=== PATIENT | male | born 1975 | race Caucasian/White ===

== ENCOUNTER 2019-11-26 13:39 | Inpatient (IN) | payer MEDICAID, OTHER ==
[~2019-11-26] VITALS: Ht 167.6 cm; Wt 98.4 kg
[~2019-11-26 13:39] MED LIST: BACL10TA PO; HYDR-3971 PO; OXYC-158 PO
[2019-11-26 16:03] LABS: BASOPHILS % (AUTO) 1.4 % (0.0-2.0); EOSINOPHILS % (AUTO) 0.3 % (1.0-6.0); HEMATOCRIT 49.4 % (41-53); HEMOGLOBIN 16.3 g/dL (13.5-17.5); LYMPHOCYTES # (AUTO) 1.1 K/uL (1.0-4.8); LYMPHOCYTES % (AUTO) 21.5 % (22.0-44.0); MEAN CORPUSCULAR HEMOGLOBIN 29.3 pg (26.0-34.0); MEAN CORPUSCULAR VOLUME 89 fL (80-100); MONOCYTES # (AUTO) 0.5 K/uL (0.1-1.0); MONOCYTES % (AUTO) 9.2 % (2.0-9.0); NEUTROPHILS # (AUTO) 3.3 K/uL (1.8-7.7); NEUTROPHILS % (AUTO) 67.6 % (40.0-70.0); PLATELET COUNT (AUTO) 261 K/uL (150-450); RED BLOOD CELL COUNT(AUTO) 5.57 MIL/uL (4.50-5.90); RED CELL DISTRIBUTION WIDTH 14.5 % (11.5-14.5)
[2019-11-26 16:15] LABS: ANION GAP 13 mmol/L (8-16); CALCIUM, TOTAL 8.1 mg/dL (8.8-10.5); CARBON DIOXIDE 24 mmol/L (22-29); CHLORIDE 106 mmol/L (98-107); GLOMERULAR FILTR. RATE CALC > 60 mL/min (>60); GLUCOSE,RANDOM 113 mg/dL (70-110); POTASSIUM 3.3 mmol/L (3.5-5.1); SODIUM SERUM 143 mmol/L (136-145); UREA NITROGEN, BLOOD 14 mg/dL (7-18)
[2019-11-26 16:19] LABS: ALANINE AMINOTRANSFERASE 78 U/L (12-78); ALBUMIN 4.1 g/dL (3.4-5.0); ALKALINE PHOSPHATASE 130 U/L (46-116); ASPARTATE AMINOTRANSFERASE 76 U/L (15-37); BILIRUBIN,TOTAL 0.6 mg/dL (0.1-1.0); TOTAL PROTEIN, SERUM 7.3 g/dL (6.4-8.2)
[2019-11-26] MEDS ORDERED: ONDANSETRON HCL 4 MG TABLET PO ONE (18:30)
[2019-11-26] MEDS ORDERED: LORazepam 2 MG TABLET PO ONE (18:45)
[2019-11-26] MEDS ORDERED: IBUPROFEN 600 MG TABLET PO ONE (19:15)
[2019-11-26 20:00] LABS: AMPHET/METH SCREEN,URINE NEGATIVE (NEGATIVE); BARBITURATE SCREEN, URINE NEGATIVE (NEGATIVE); BENZODIAZEPINES SCREEN,URINE POSITIVE (NEGATIVE); CANNABINOID SCREEN,URINE POSITIVE (NEGATIVE); COCAINE SCREEN,URINE NEGATIVE (NEGATIVE); METHADONE SCREEN, URINE NEGATIVE (NEGATIVE); OPIATE SCREEN,URINE NEGATIVE (NEGATIVE)
[2019-11-26 20:03] LABS: PHENCYCLIDINE SCREEN,URINE NEGATIVE (NEGATIVE)
[2019-11-26] MEDS ORDERED: GABA-1201 PO (20:09)
[2019-11-26] MEDS ORDERED: [UNRECOGNIZED DRUG - CODE] PO (20:09)
[2019-11-26] MEDS ORDERED: PRAZ2 PO (20:09)
[2019-11-26] MEDS ORDERED: LISI-660 PO (20:09)
[2019-11-26] MEDS ORDERED: SERT100T12 PO (20:09)
[2019-11-26] MEDS ORDERED: BUSP5TAB20 PO (20:09)
[2019-11-26] MEDS ORDERED: AMLO2.5T4 PO (20:09)
[2019-11-26] MEDS ORDERED: DICL2.5D8 OU (20:10)
[2019-11-26 21:30] VITALS: BP 138/102
[2019-11-26] MEDS: LORazepam 2 MG TABLET PO PRN (22:18)
[2019-11-26 22:30] VITALS: BP_SYST 159; BP_DIAS 106; BP_DIAS 109
[2019-11-26] MEDS ORDERED: IBUPROFEN 400 MG TABLET PO PRN (23:15)
[2019-11-26] MEDS ORDERED: ACETAMINOPHEN 325 MG TABLET PO PRN (23:15)
[2019-11-26] MEDS ORDERED: DOCUSATE SODIUM 100 MG CAPSULE PO PRN (23:15)
[2019-11-26] MEDS ORDERED: PETROLATUM,WHITE 28 GM JELLY TP PRN (23:15)
[2019-11-26] MEDS ORDERED: ALBUTEROL SULFATE HFA 90 MCG/PUFF 8 GM INHALER IH PRN (23:15)
[2019-11-26] MEDS ORDERED: NICOTINE 14 MG/24 HOUR PATCH TD PRN (23:15)
[2019-11-26] MEDS ORDERED: GuaiFENesin/D-METHORPHAN [SUGAR-FREE] 200-20MG/10 ML SYRUP UDCUP PO PRN (23:15)
[2019-11-26] MEDS ORDERED: LOPERAMIDE HCL 2 MG CAPSULE PO PRN (23:15)
[2019-11-26] MEDS ORDERED: CloNIDine HCL 0.1 MG TABLET PO PRN (23:15)
[2019-11-26] MEDS ORDERED: ONDANSETRON HCL 4 MG TABLET PO PRN (23:15)
[2019-11-26] MEDS ORDERED: MAG HYDROX/AL HYDROX/SIMETH ES 30 ML SUSPENSION UDCUP PO PRN (23:15)
[2019-11-26] MEDS ORDERED: MAGNESIUM HYDROXIDE SUSPENSION 30 ML UDCUP PO PRN (23:15)
[2019-11-26 23:30] VITALS: BP 158/88
[2019-11-27] VITALS (10 sets, daily range): BP systolic 126–156; BP diastolic 73–99
[2019-11-27] MEDS: ZOLPIDEM TARTRATE 10 MG TABLET PO PRN (01:58)
[2019-11-27] MEDS: LORazepam 2 MG TABLET PO PRN (01:58)
[2019-11-27] MEDS ORDERED: LORazepam 2 MG TABLET PO PRN (07:00)
[2019-11-27] MEDS ORDERED: ALBUTEROL SULFATE HFA 90 MCG/PUFF 8 GM INHALER IH PRN (09:30)
[2019-11-27] MEDS ORDERED: MAG HYDROX/AL HYDROX/SIMETH ES 30 ML SUSPENSION UDCUP PO PRN (09:30)
[2019-11-27] MEDS ORDERED: ONDANSETRON HCL 4 MG TABLET PO PRN (09:30)
[2019-11-27] MEDS ORDERED: CloNIDine HCL 0.1 MG TABLET PO PRN (09:30)
[2019-11-27] MEDS ORDERED: LOPERAMIDE HCL 2 MG CAPSULE PO PRN (09:30)
[2019-11-27] MEDS ORDERED: GuaiFENesin/D-METHORPHAN [SUGAR-FREE] 200-20MG/10 ML SYRUP UDCUP PO PRN (09:30)
[2019-11-27] MEDS ORDERED: NICOTINE 14 MG/24 HOUR PATCH TD PRN (09:30)
[2019-11-27] MEDS ORDERED: PETROLATUM,WHITE 28 GM JELLY TP PRN (09:30)
[2019-11-27] MEDS ORDERED: MAGNESIUM HYDROXIDE SUSPENSION 30 ML UDCUP PO PRN (09:30)
[2019-11-27] MEDS ORDERED: DOCUSATE SODIUM 100 MG CAPSULE PO PRN (09:30)
[2019-11-27] MEDS: NICOTINE 21 MG/24 HOUR PATCH TD SCH (09:47)
[2019-11-27] MEDS: LORazepam 2 MG TABLET PO SCH ×4 (09:47→20:30)
[2019-11-27 11:18] LABS: BASOPHILS % (AUTO) 0.2 % (0.0-2.0); EOSINOPHILS % (AUTO) 0.4 % (1.0-6.0); HEMATOCRIT 45.7 % (41-53); HEMOGLOBIN 15.7 g/dL (13.5-17.5); LYMPHOCYTES % (AUTO) 10.1 % (22.0-44.0); MEAN CORPUSCULAR HEMOGLOBIN 29.9 pg (26.0-34.0); MEAN CORPUSCULAR HGB CONC 34.4 G/dL (31.0-37.0); MEAN CORPUSCULAR VOLUME 87 fL (80-100); MONOCYTES % (AUTO) 10.6 % (2.0-9.0); NEUTROPHILS # (AUTO) 7.5 K/uL (1.8-7.7); NEUTROPHILS % (AUTO) 78.7 % (40.0-70.0); PLATELET COUNT (AUTO) 230 K/uL (150-450); RED BLOOD CELL COUNT(AUTO) 5.25 MIL/uL (4.50-5.90); RED CELL DISTRIBUTION WIDTH 14.5 % (11.5-14.5)
[2019-11-27 11:42] LABS: ALANINE AMINOTRANSFERASE 89 U/L (12-78); ALBUMIN 3.8 g/dL (3.4-5.0); ALKALINE PHOSPHATASE 129 U/L (46-116); ANION GAP 11 mmol/L (8-16); ASPARTATE AMINOTRANSFERASE 67 U/L (15-37); CALCIUM, TOTAL 8.9 mg/dL (8.8-10.5); CARBON DIOXIDE 29 mmol/L (22-29); CHLORIDE 103 mmol/L (98-107); CHOL/HDL RATIO 4.8 (4.2-7.3); CHOLESTEROL 172 mg/dL (131-200); CREATININE 1.01 mg/dL (0.60-1.30); GLOMERULAR FILTR. RATE CALC > 60 mL/min (>60); GLUCOSE,RANDOM 110 mg/dL (70-110); HDL CHOLESTEROL 36 mg/dL (40-60); POTASSIUM 3.5 mmol/L (3.5-5.1); SODIUM SERUM 143 mmol/L (136-145); THYROID STIMULATING HORMONE 1.94 uIU/mL (0.36-3.74); TOTAL PROTEIN, SERUM 6.7 g/dL (6.4-8.2); TRIGLYCERIDES 403 mg/dL (15-150); UREA NITROGEN, BLOOD 19 mg/dL (7-18)
[2019-11-27] MEDS: IBUPROFEN 400 MG TABLET PO PRN (12:56)
[2019-11-27] MEDS: QUEtiapine FUMARATE 100 MG TABLET PO SCH (20:30)
[2019-11-28 01:30] VITALS: BP 138/86
[2019-11-28 05:53] VITALS: BP 142/84
[2019-11-28] MEDS: NICOTINE 21 MG/24 HOUR PATCH TD SCH (09:13)
[2019-11-28] MEDS: LORazepam 2 MG TABLET PO SCH ×4 (09:13→21:10)
[2019-11-28] MEDS: AmLODIPine BESYLATE 2.5 MG TABLET PO SCH (09:14)
[2019-11-28] MEDS: LISINOPRIL 5 MG TABLET PO SCH (09:14)
[2019-11-28] MEDS: QUEtiapine FUMARATE 25 MG TABLET PO SCH (09:14)
[2019-11-28 09:15] VITALS: BP 144/109
[2019-11-28] MEDS: IBUPROFEN 400 MG TABLET PO PRN ×2 (09:15→19:05)
[2019-11-28 12:36] VITALS: BP 144/98
[2019-11-28 16:30] VITALS: BP 137/96
[2019-11-28] MEDS: HALOPERIDOL 5 MG TABLET PO PRN (19:00)
[2019-11-28] MEDS: QUEtiapine FUMARATE 100 MG TABLET PO SCH (21:10)
[2019-11-28] MEDS: ACETAMINOPHEN 325 MG TABLET PO PRN (23:56)
[2019-11-29 00:05] VITALS: BP 142/98
[2019-11-29] MEDS ORDERED: LORazepam 1 MG TABLET PO PRN (07:00)
[2019-11-29] MEDS: QUEtiapine FUMARATE 25 MG TABLET PO SCH (08:52)
[2019-11-29] MEDS: LISINOPRIL 5 MG TABLET PO SCH (08:52)
[2019-11-29] MEDS: LORazepam 1 MG TABLET PO SCH ×4 (08:52→20:50)
[2019-11-29] MEDS: AmLODIPine BESYLATE 2.5 MG TABLET PO SCH (08:52)
[2019-11-29] MEDS: NICOTINE 21 MG/24 HOUR PATCH TD SCH (08:53)
[2019-11-29 08:56] VITALS: BP 135/98
[2019-11-29] MEDS: IBUPROFEN 400 MG TABLET PO PRN (08:56)
[2019-11-29 09:54] VITALS: BP 135/98
[2019-11-29] MEDS: ACETAMINOPHEN 325 MG TABLET PO PRN (14:24)
[2019-11-29 19:55] VITALS: BP 109/70
[2019-11-29] MEDS: QUEtiapine FUMARATE 100 MG TABLET PO SCH (20:50)
[2019-11-29] MEDS: HALOPERIDOL 5 MG TABLET PO PRN ×2 (21:27)
[2019-11-30] MEDS: LORazepam 2 MG TABLET PO PRN ×2 (02:11→02:23)
[2019-11-30 02:17] VITALS: BP 134/97
[2019-11-30] MEDS: HALOPERIDOL 5 MG TABLET PO PRN ×2 (02:23→18:00)
[2019-11-30] MEDS: AmLODIPine BESYLATE 2.5 MG TABLET PO SCH (08:59)
[2019-11-30] MEDS: LISINOPRIL 5 MG TABLET PO SCH (08:59)
[2019-11-30] MEDS: QUEtiapine FUMARATE 25 MG TABLET PO SCH (08:59)
[2019-11-30] MEDS: NICOTINE 21 MG/24 HOUR PATCH TD SCH (09:00)
[2019-11-30] MEDS: LORazepam 1 MG TABLET PO PRN ×2 (09:02→18:00)
[2019-11-30] MEDS: IBUPROFEN 400 MG TABLET PO PRN (09:03)
[2019-11-30 10:03] VITALS: BP 124/83
[2019-11-30 18:17] VITALS: BP 145/100
[2019-11-30] MEDS: ZOLPIDEM TARTRATE 10 MG TABLET PO PRN (20:12)
[2019-11-30] MEDS: QUEtiapine FUMARATE 100 MG TABLET PO SCH (20:13)
[2019-12-01] MEDS: HALOPERIDOL 5 MG TABLET PO PRN ×3 (00:53→16:01)
[2019-12-01] MEDS: LORazepam 1 MG TABLET PO PRN ×2 (00:53→04:55)
[2019-12-01 01:02] VITALS: BP 144/107
[2019-12-01] MEDS: LORazepam 2 MG TABLET PO PRN ×2 (03:41→16:01)
[2019-12-01] MEDS: AmLODIPine BESYLATE 2.5 MG TABLET PO SCH (08:47)
[2019-12-01] MEDS: QUEtiapine FUMARATE 25 MG TABLET PO SCH (08:47)
[2019-12-01] MEDS: NICOTINE 21 MG/24 HOUR PATCH TD SCH (08:47)
[2019-12-01] MEDS: LISINOPRIL 5 MG TABLET PO SCH (08:47)
[2019-12-01 08:55] VITALS: BP 131/99
[2019-12-01 16:50] VITALS: BP 148/100
[2019-12-01] MEDS: QUEtiapine FUMARATE 100 MG TABLET PO SCH (20:10)
[2019-12-02] MEDS: LORazepam 2 MG TABLET PO PRN ×4 (00:01→17:45)
[2019-12-02] MEDS: ZOLPIDEM TARTRATE 10 MG TABLET PO PRN ×2 (00:02→23:47)
[2019-12-02] MEDS: HALOPERIDOL 5 MG TABLET PO PRN ×2 (01:43→23:47)
[2019-12-02 03:25] VITALS: BP 123/98
[2019-12-02] MEDS: NICOTINE 21 MG/24 HOUR PATCH TD SCH (08:43)
[2019-12-02] MEDS: QUEtiapine FUMARATE 25 MG TABLET PO SCH (08:44)
[2019-12-02] MEDS: AmLODIPine BESYLATE 2.5 MG TABLET PO SCH (08:44)
[2019-12-02] MEDS: LISINOPRIL 5 MG TABLET PO SCH (08:45)
[2019-12-02 09:50] VITALS: BP 105/85
[2019-12-02] MEDS: QUEtiapine FUMARATE 100 MG TABLET PO SCH (20:06)
[2019-12-02 20:39] VITALS: BP 130/90
[2019-12-02] MEDS: IBUPROFEN 400 MG TABLET PO PRN (21:09)
[2019-12-03 00:35] VITALS: BP 119/94
[2019-12-03] MEDS: IBUPROFEN 400 MG TABLET PO PRN (05:10)
[2019-12-03] MEDS: AmLODIPine BESYLATE 2.5 MG TABLET PO SCH (08:37)
[2019-12-03] MEDS: NICOTINE 21 MG/24 HOUR PATCH TD SCH (08:37)
[2019-12-03] MEDS: LISINOPRIL 5 MG TABLET PO SCH (08:37)
[2019-12-03] MEDS: QUEtiapine FUMARATE 25 MG TABLET PO SCH (08:37)
[2019-12-03] MEDS: LORazepam 2 MG TABLET PO PRN ×2 (08:41→16:33)
[2019-12-03 09:05] VITALS: BP 118/92
[2019-12-03] MEDS: ACETAMINOPHEN 325 MG TABLET PO PRN (14:00)
[2019-12-03] MEDS: HALOPERIDOL 5 MG TABLET PO PRN (16:33)
[2019-12-03] MEDS ORDERED: QUET25TA PO (17:01)
[2019-12-03] MEDS ORDERED: QUET100T PO (17:01)
[2019-12-03] MEDS ORDERED: FOLI0.4T92 PO (17:04)
[2019-12-03] MEDS ORDERED: THIA100T80 PO (17:04)
[2019-12-03] MEDS ORDERED: OMEG-135 PO (17:05)
[2019-12-03] MEDS ORDERED: FOLI-130 PO (17:09)
[2019-12-04] MEDS ORDERED: THIAMINE 100 MG TABLET PO SCH (09:00)
[2019-12-04] MEDS ORDERED: OMEGA-3/DHA/EPA/FISH OIL 1,000 MG CAPSULE PO SCH (09:00)
[2019-12-04] MEDS ORDERED: FOLIC ACID 1 MG TABLET PO SCH (09:00)
== END 2019-12-03 17:30 | disposition home or self-care (01) | DRG 885 ==
LOC: EMS 13:41 → 3EI 19:30
PROVIDERS: ADMIT Psychiatry & Neurology Child & Adolescent Psychiatry; ATTEND Psychiatry & Neurology Child & Adolescent Psychiatry
DX: F25.9 Schizoaffective disorder, unspecified (principal); R45.851 Suicidal ideations; E11.9 Type 2 diabetes mellitus without complications; E55.9 Vitamin D deficiency, unspecified; E78.5 Hyperlipidemia, unspecified; F17.200 Nicotine dependence, unspecified, uncomplicated; F32.9 Major depressive disorder, single episode, unspecified; F43.10 Post-traumatic stress disorder, unspecified; G40.909 Epilepsy, unspecified, not intractable, without status epilepticus; I10 Essential (primary) hypertension; F10.10 Alcohol abuse, uncomplicated; J44.9 Chronic obstructive pulmonary disease, unspecified; Z59.0 Homelessness; Z79.899 Other long term (current) drug therapy; Z86.15 Personal history of latent tuberculosis infection; Z95.0 Presence of cardiac pacemaker
CPT/HCPCS: 83036; 84443; 93005; G0480; Q0162

== ENCOUNTER 2023-03-15 00:55 | Emergency (ER) | payer MEDICAID, OTHER ==
[~2023-03-15] VITALS: Ht 167.6 cm; Wt 95.5 kg
[~2023-03-15 00:55] MED LIST changes: +AMLO2.5T96 PO; -BACL10TA PO; +FOLI-130 PO; -HYDR-3971 PO; +LISI-892 PO; +OMEG-135 PO; -OXYC-158 PO; +QUET100T PO; +QUET25TA PO; +THIA100T80 PO
[2023-03-15 01:15] VITALS: TEMP 98
[2023-03-15 01:49] LABS: BASOPHILS % (AUTO) 1.1 % (0.0-2.0); EOSINOPHILS % (AUTO) 0.4 % (1.0-6.0); HEMATOCRIT 47.6 % (41-53); HEMOGLOBIN 15.8 g/dL (13.5-17.5); LYMPHOCYTES # (AUTO) 1.6 K/uL (1.0-4.8); LYMPHOCYTES % (AUTO) 24.8 % (22.0-44.0); MEAN CORPUSCULAR HEMOGLOBIN 27.9 pg (26.0-34.0); MEAN CORPUSCULAR HGB CONC 33.2 G/dL (31.0-37.0); MEAN CORPUSCULAR VOLUME 84 fL (80-100); MONOCYTES # (AUTO) 0.7 K/uL (0.1-1.0); MONOCYTES % (AUTO) 10.9 % (2.0-9.0); NEUTROPHILS # (AUTO) 4.1 K/uL (1.8-7.7); NEUTROPHILS % (AUTO) 62.8 % (40.0-70.0); PLATELET COUNT (AUTO) 260 K/uL (150-450); RED BLOOD CELL COUNT(AUTO) 5.67 MIL/uL (4.50-5.90); RED CELL DISTRIBUTION WIDTH 14.6 % (11.5-14.5)
[2023-03-15 01:53] LABS: ANION GAP 12 mmol/L (8-16); CARBON DIOXIDE 25 mmol/L (22-29); CHLORIDE 101 mmol/L (98-107); CREATININE 0.94 mg/dL (0.60-1.30); GLOMERULAR FILTR. RATE CALC > 60 mL/min (>60); GLUCOSE,RANDOM 134 mg/dL (70-110); SODIUM SERUM 138 mmol/L (136-145)
[2023-03-15 01:57] LABS: INR 1.1 (0.9-1.1); PROTHROMBIN TIME 11.5 SEC (9.4-11.6)
[2023-03-15 02:00] LABS: B-TYPE NATRIURETIC PEPTIDE 9 pg/mL (0-100)
[2023-03-15 02:06] LABS: ALANINE AMINOTRANSFERASE 25 U/L (12-78); ALBUMIN 3.7 g/dL (3.4-5.0); ALKALINE PHOSPHATASE 155 U/L (46-116); ASPARTATE AMINOTRANSFERASE 52 U/L (15-37); BILIRUBIN,TOTAL 0.8 mg/dL (0.1-1.0); CREATINE KINASE, TOTAL ONLY 827 U/L (39-308); TOTAL PROTEIN, SERUM 7.4 g/dL (6.4-8.2)
[2023-03-15 03:02] LABS: APPEARANCE,URINE CLEAR (CLEAR); BILIRUBIN,URINE NEGATIVE (NEGATIVE); GLUCOSE, URINE (UA) TRACE mg/dL (NEGATIVE); KETONES,URINE NEGATIVE (NEGATIVE); LEUKOCYTE ESTERASE ,URINE NEGATIVE (NEGATIVE); NITRATE,URINE NEGATIVE (NEGATIVE); OCCULT BLOOD,URINE NEGATIVE (NEGATIVE); PROTEIN,URINE TRACE mg/dL (NEGATIVE); SPECIFIC GRAVITIY, URINE 1.013 (1.003-1.030); UROBILINOGEN,URINE <=1.0 mg/dL (<=1.0)
[2023-03-15 03:08] LABS: AMPHET/METH SCREEN,URINE NEGATIVE (NEGATIVE); BARBITURATE SCREEN, URINE NEGATIVE (NEGATIVE); BENZODIAZEPINES SCREEN,URINE NEGATIVE (NEGATIVE); CANNABINOID SCREEN,URINE NEGATIVE (NEGATIVE); COCAINE SCREEN,URINE NEGATIVE (NEGATIVE); METHADONE SCREEN, URINE NEGATIVE (NEGATIVE); OPIATE SCREEN,URINE NEGATIVE (NEGATIVE); PHENCYCLIDINE SCREEN,URINE NEGATIVE (NEGATIVE)
[2023-03-15 04:00] VITALS: BP 150/102; PULSE 122; RESP 22
[2023-03-15] MEDS ORDERED: SODIUM CHLORIDE 0.9% 1,000 ML IV ONE (04:30)
[2023-03-15] MEDS ORDERED: PB/HYOSCY/ATR/SCOP/LIDO/MAALOX 55 ML BOTTLE PO ONE (04:30)
[2023-03-15] MEDS ORDERED: POTASSIUM CHLORIDE 20 MEQ ER TABLET PO ONE (04:30)
== END 2023-03-15 06:58 | disposition home or self-care (01) ==
LOC: EMS 00:55
DX: E87.6 Hypokalemia (principal); M62.82 Rhabdomyolysis; F10.129 Alcohol abuse with intoxication, unspecified; R07.89 Other chest pain; F17.210 Nicotine dependence, cigarettes, uncomplicated; Z98.890 Other specified postprocedural states; Y90.9 Presence of alcohol in blood, level not specified
CPT/HCPCS: 99285; 96360; 71045; 80053; 81003; 82550; 83880; 84484; 85025; 85610; 85730; 36415; 93005; 80307; J7030; G0480